=== PATIENT | male | born 1995 | race Caucasian/White ===

== ENCOUNTER 2016-08-03 13:44 | Emergency (ER) ==
[2016-08-03 14:03] VITALS: BP 149/63
--- NOTE | 2016-08-03 14:22 | PROVIDER DOCUMENTATION ---
HPI-EENT General - General Chief Complaint: Abscess Stated Complaint: poss abscess Time Seen by Provider: 08/03/16 14:13 Source: patient Allergies/Adverse Reactions: Patient Allergies Allergy/AdvReac Type Severity Reaction Status Date / Time No Known Allergies Allergy Verified 05/04/16 21:50 Home Medications: Home Medication List Medication Instructions Recorded Confirmed Last Taken Type Neomycin/Polymyxn/Hc Otic Susp 4 drop LEFT EAR TID #1 bottle 08/03/16 Unknown Rx [Cortisporin Otic Susp] Sulfamethoxazole/Trimethoprim 1 each PO BID #10 tablet 08/03/16 Unknown Rx [Bactrim Ds Tablet] - History of Present Illness-EENT General Nature of Presenting Problem: 20 y/o M c/o L ear pain x 4 days. Pt states that he has a knot inside L ear canal that is tender to touch. Reports that he has had the same sxs before, but has never been evaluated for it. States decreased hearing in L ear. No other sxs reported. Review of Systems - Adult - REVIEW OF SYSTEMS - ADULT Constitutional: reports: no symptoms reported. denies: chills, fever Eyes: reports: no symptoms reported. denies: blurred vision, double vision Ears, Nose, Mouth & Throat: reports: see HPI, ear pain. denies: nose pain, throat pain Cardiovascular: reports: no symptoms reported. denies: chest pain, palpitations Respiratory: reports: no symptoms reported. denies: dyspnea on exertion, shortness of breath Gastrointestinal: reports: no symptoms reported. denies: abdominal pain, nausea , vomiting Genitourinary: reports: no symptoms reported. denies: dysuria, frequency Musculoskeletal: reports: no symptoms reported. denies: joint pain, joint swelling Integumentary: reports: see HPI. denies: nail changes, rash Neurological: reports: no symptoms reported. denies: numbness, paresthesia Psychiatric: reports: no symptoms reported Endocrine: reports: no symptoms reported. denies: cold intolerance, heat intolerance Hematologic/Lymphatic: reports: no symptoms reported. denies: easy bruising, prolonged bleeding Allergic/Immunologic: reports: no symptoms reported All Other Systems: Reviewed and Negative Past History - Adult - PAST MEDICAL HISTORY-ADULT Review of Records: reports: Nursing Assessment Review, Medications Reviewed Major Childhood Illnesses: reports: denies history Cardiovascular: reports: denies history Respiratory: reports: denies history Gastrointestinal: reports: denies history Obstetrical/Gynecological: reports: denies history Genitourinary: reports: denies history Musculoskeletal: reports: denies history Neurological: reports: denies history Psychiatric: reports: denies history Endocrine/Immune: reports: denies history Other Conditions: reports: denies history - PRIOR SURGERIES/PROCEDURES Surgical/Procedure History: reports: none - PRIOR HOSPITALIZATIONS Prior Hospitalizations: reports: none - IMMUNIZATION STATUS Childhood Immunizations: See Nurse Assessment Flu Vaccine: See Nurse Assessment - FAMILY HISTORY Family History: reviewed, not pertinent - SOCIAL HISTORY Smoking: cigarettes, greater than 1 pack/day Provider spent 3-5 mins advising pt. on dangers of tobacco.: Discussed manners to quit use, and f/u contacts for add'l counseling. Physical Exam- EENT - Physical Exam EENT Initial Vital Signs Reviewed: Yes General Appearance: appears well, alert, mild distress Eye Exam: bilateral eye: normal inspection Ear Exam: right ear: canal normal, left ear: other (0.5 cm red lesion to superior aspect of L external canal), bilateral ear: auricle normal, TM normal Nasal Exam: normal inspection Throat Exam: normal mouth inspection Neck: normal inspection Respiratory: no respiratory distress Lymphatic: no adenopathy Extremity: normal gait Integumentary: normal color, normal turgor, warm/dry Neurologic: negative: aphasia Psych/Mental Status: normal mood/affect, normal thought content, normal thought process, oriented x 3 Departure - Departure Time of Disposition Order: 14:26 DIAGNOSIS: Skin lesion of left ear Disposition: HOME 01 Certified Medical Emergency: Emergent Condition: Stable Additional Instructions: Take medications as directed. Follow up with specialist if symptoms persist. ED Follow Up Instructions: You have been treated by a care provider in the Emergency Department. These instructions are being provided to you so you can have an understanding of how to care for yourself upon discharge. Upon discharge from the Emergency Department, you are responsible for making arrangements for follow-up care by a physician of your choice. Take all prescribed medications as directed. Return to the Emergency Department immediately for any new or worsening symptoms. You may call the Physician Referral phone number at [phone] to obtain a list of Physicians who are taking new patients. Prescriptions: Sulfamethoxazole/Trimethoprim [Bactrim Ds Tablet] 1 each PO BID #10 tablet Neomycin/Polymyxn/Hc Otic Susp [Cortisporin Otic Susp] 4 drop LEFT EAR TID #1 bottle Referrals: None,PCP [Primary Care Provider] - Tramaine Jordan MD [STAFF PHYSICIAN] - Attestation - Physician/ OLIVIA Attestation Patient care was provided by Advanced Practice Provider:: Yes Advanced Practice Provider:: Remedios Mathis Advanced Practice Provider documentation review:: The Mid-level provider documentation, treatment plan and medical decision making was reviewed by the physician who agrees with all treatment and medical decision making by the MLP.
[2016-08-03] MEDS ORDERED: DECADRON IM ONE (14:23)
== END 2016-08-03 14:52 | disposition home or self-care (01) ==
LOC: ED 13:44
DX: L98.9 Disorder of the skin and subcutaneous tissue, unspecified (principal); H92.02 Otalgia, left ear; H93.8X2 Other specified disorders of left ear; H91.92 Unspecified hearing loss, left ear; F17.210 Nicotine dependence, cigarettes, uncomplicated; Z71.6 Tobacco abuse counseling
CPT/HCPCS: J1100